=== PATIENT | female | born 1995 | race Caucasian/White ===

== ENCOUNTER 2016-09-01 20:50 | Emergency (ER) | payer SELFPAY ==
[~2016-09-01] VITALS: Ht 165.1 cm; Wt 70.5 kg
[~2016-09-01 20:50] MED LIST: ABILIFY2 MG; DEPO-PROVER150 MG/M1 IM; ESCITALOPRAM; FLEXERIL 1010 MG/TAB PO; LORTAB 5/500 501 TAB PO; NO HOME MEDICATIONS; NORCO 325 MG-51 TAB PO; NORCO 325 MG-7.1 TAB PO; PEN-VEE K500 MG PO; PERCOCET 325 MG1 TA2 PO; PHENERGAN 25 TA25 MG PO; SKELAXIN 4400 MG/TAB PO; ULTRAM 50MG TAB50 MG PO; ZOFRAN ODT4 MG PO
[2016-09-01 21:48] LABS: BASO # 0.1 (0.0-0.2); BASO % 0.7 % (0.0-2.0); EOS # 0.2 (0.0-0.7); EOS % 2.9 % (0-4.0); GRAN # 4.9 (1.4-6.5); GRAN % 64.9 % (42.2-75.2); HEMATOCRIT 43.2 % (37.0-47.0); HEMOGLOBIN 14.7 g/dl (12.5-16.0); LYMPH % 25.9 % (20.0-51.0); MEAN CELL VOLUME 88 fl (80.0-100.0); MEAN CORPUSCULAR HEMOGLOBIN 30 pg (27.0-31.0); MEAN CORPUSCULAR HGB CONC 34 g/dl (33.0-37.0); MEAN PLATELET VOLUME 8.9 fl (7.4-10.4); MONO # 0.4 (0.1-0.6); MONO % 5.3 % (1.7-9.3); PLATELET COUNT 320 K/mm3 (130-400); REDCELL DISTRIBUTION WIDTH-CV 12.4 % (11.5-14.5); WHITE BLOOD COUNT 7.6 K/mm3 (4.8-10.8)
[2016-09-01 21:58] LABS: PH 9 (5-8); URINE APPEARANCE Cloudy; URINE BACTERIA None Seen /hpf; URINE BILIRUBIN Negative (NEGATIVE); URINE BLOOD Negative (NEGATIVE); URINE COLOR Yellow; URINE GLUCOSE Negative (NEGATIVE); URINE KETONE Negative (NEGATIVE); URINE UROBILINOGEN Negative (NEGATIVE); URINE WBC None Seen /hpf
[2016-09-01 22:29] LABS: ADJUSTED CALCIUM 8.9 mg/dL (8.4-10.2); ALBUMIN 3.6 gm/dL (3.5-5.0); BILIRUBIN,TOTAL 0.6 mg/dL (0.0-1.0); C-REACTIVE PROTEIN 0.7 mg/dL (0.0-0.9); CALCIUM 8.6 mg/dL (8.4-10.2); CREATININE, serum 0.69 mg/dL (0.52-1.25); POTASSIUM 3.5 mmol/L (3.4-5.0); TOTAL PROTEIN 6.3 gm/dL (6.4-8.2)
[2016-09-01 22:55] VITALS: BP 131/91; PULSE 88; TEMP 97.8
[2016-09-02 00:11] LABS: CHLAMYDIA/TRACH by PCR Female NOT DETECTED; NEISSERIA GON by PCR Female NOT DETECTED
[2017-02-07] MEDS ORDERED: ATARAX50 MG PO (14:13)
[2017-02-07] MEDS ORDERED: WELLBUTRIN XL300 M1 PO (14:13)
[2017-02-07] MEDS ORDERED: DIAST10 RC (17:42)
[2017-02-07] MEDS ORDERED: VALIUM 5MG T5 MG/TAB PO (18:17)
== END 2016-09-01 22:52 | disposition home or self-care (01) ==
LOC: COL.ER 20:50
PROVIDERS: Nurse Practitioner
DX: R10.2 Pelvic and perineal pain (principal); N94.89 Other specified conditions associated with female genital organs and menstrual cycle; N89.8 Other specified noninflammatory disorders of vagina
CPT/HCPCS: J1885; J7030

== ENCOUNTER 2016-11-26 02:25 | Emergency (ER) | payer SELFPAY ==
[~2016-11-26] VITALS: Ht 167.6 cm; Wt 70.5 kg
[2016-11-26 02:27] VITALS: BP 138/70; TEMP 98.5
[2016-11-26] MEDS ORDERED: FLEXERIL 1010 MG/TAB PO (02:47)
[2016-11-26 02:59] VITALS: PULSE 99
[2016-11-26] MEDS ORDERED: VALIUM 5MG T5 MG/TAB PO (23:39)
[2016-11-26] MEDS ORDERED: NORCO 325 MG-51 TAB PO (23:39)
[2017-02-07] MEDS ORDERED: ATARAX50 MG PO (14:13)
[2017-02-07] MEDS ORDERED: WELLBUTRIN XL300 M1 PO (14:13)
[2017-02-07] MEDS ORDERED: DIAST10 RC (17:42)
[2017-02-07] MEDS ORDERED: VALIUM 5MG T5 MG/TAB PO (18:17)
== END 2016-11-26 03:01 | disposition home or self-care (01) ==
LOC: COL.ER 02:25
DX: S16.1XXA Strain of muscle, fascia and tendon at neck level, initial encounter (principal); X50.1XXA Overexertion from prolonged static or awkward postures, initial encounter
CPT/HCPCS: J1885

== ENCOUNTER 2016-11-26 23:11 | Emergency (ER) | payer SELFPAY ==
[~2016-11-26] VITALS: Ht 167.6 cm; Wt 70.5 kg
[2016-11-26 23:14] VITALS: BP 139/79; TEMP 98.1
[2016-11-26] MEDS ORDERED: NORCO 325 MG-51 TAB PO (23:39)
[2016-11-26] MEDS ORDERED: VALIUM 5MG T5 MG/TAB PO (23:39)
[2016-11-26 23:53] VITALS: PULSE 94
[2017-02-07] MEDS ORDERED: ATARAX50 MG PO (14:13)
[2017-02-07] MEDS ORDERED: WELLBUTRIN XL300 M1 PO (14:13)
[2017-02-07] MEDS ORDERED: DIAST10 RC (17:42)
[2017-02-07] MEDS ORDERED: VALIUM 5MG T5 MG/TAB PO (18:17)
== END 2016-11-26 23:55 | disposition home or self-care (01) ==
LOC: COL.ER 23:11
DX: S16.1XXA Strain of muscle, fascia and tendon at neck level, initial encounter (principal); X50.1XXA Overexertion from prolonged static or awkward postures, initial encounter; M62.838 Other muscle spasm

== ENCOUNTER 2017-01-25 20:45 | Emergency (ER) | payer SELFPAY ==
[~2017-01-25] VITALS: Ht 167.6 cm; Wt 68.2 kg
[~2017-01-25 20:45] MED LIST changes: +VALIUM 5MG T5 MG/TAB PO
[2017-01-25 20:52] VITALS: BP 137/92; TEMP 99
[2017-01-25 21:42] LABS: AMPHETAMINE URINE POSITIVE; BARBITURATES URINE NEGATIVE; BENZODIAZEPINES URINE NEGATIVE; BUPRENORPHINE URINE NEGATIVE; METHADONE URINE NEGATIVE; OPIATES URINE NEGATIVE; OXYCODONE URINE POSITIVE; PHENCYCLIDINE URINE NEGATIVE; PROPOXYPHENE URINE NEGATIVE; THC CANNABINOIDS URINE NEGATIVE
[2017-01-25 21:51] LABS: BASO # 0.1 (0.0-0.2); BASO % 0.6 % (0.0-2.0); EOS # 0.1 (0.0-0.7); EOS % 1.4 % (0-4.0); GRAN % 67.5 % (42.2-75.2); HEMATOCRIT 44.4 % (37.0-47.0); HEMOGLOBIN 14.6 g/dl (12.5-16.0); LYMPH # 2.5 (1.2-3.4); LYMPH % 24.4 % (20.0-51.0); MEAN CELL VOLUME 92 fl (80.0-100.0); MEAN CORPUSCULAR HEMOGLOBIN 30 pg (27.0-31.0); MEAN CORPUSCULAR HGB CONC 33 g/dl (33.0-37.0); MEAN PLATELET VOLUME 8.6 fl (7.4-10.4); MONO # 0.6 (0.1-0.6); MONO % 5.9 % (1.7-9.3); PLATELET COUNT 307 K/mm3 (130-400); RED BLOOD COUNT 4.83 M/mm3 (4.10-5.30); REDCELL DISTRIBUTION WIDTH-CV 12.8 % (11.5-14.5); WHITE BLOOD COUNT 10.3 K/mm3 (4.8-10.8)
[2017-01-25 22:01] LABS: ADJUSTED CALCIUM 9.1 mg/dL (8.4-10.2); ALANINE AMINOTRANSFERASE 21 U/L (9-52); ALBUMIN 4.6 gm/dL (3.5-5.0); ALKALINE PHOSPHATASE 54 U/L (50-136); ANION GAP 10 mmol/L (7-16); BILIRUBIN,TOTAL 1.3 mg/dL (0.0-1.0); BLOOD UREA NITROGEN 12 mg/dL (7-17); CALCIUM 9.6 mg/dL (8.4-10.2); CARBON DIOXIDE 26 mmol/L (22-30); CHLORIDE 100 mmol/L (98-107); GLUCOSE 85 mg/dL (74-106); POTASSIUM 3.9 mmol/L (3.4-5.0); SODIUM 137 mmol/L (137-145); TOTAL PROTEIN 7.9 gm/dL (6.4-8.2)
[2017-01-25 22:02] LABS: ACETAMINOPHEN < 10 ug/mL (10-30); SALICYLATE < 1.0 mg/dL
[2017-01-25 23:53] VITALS: PULSE 90
[2017-02-07] MEDS ORDERED: ATARAX50 MG PO (14:13)
[2017-02-07] MEDS ORDERED: WELLBUTRIN XL300 M1 PO (14:13)
[2017-02-07] MEDS ORDERED: DIAST10 RC (17:42)
[2017-02-07] MEDS ORDERED: VALIUM 5MG T5 MG/TAB PO (18:17)
== END 2017-01-25 23:54 | disposition home or self-care (01) ==
LOC: COL.ER 20:45
PROVIDERS: Physician Assistant
DX: R45.851 Suicidal ideations (principal); F41.9 Anxiety disorder, unspecified; F32.9 Major depressive disorder, single episode, unspecified; F17.210 Nicotine dependence, cigarettes, uncomplicated

== ENCOUNTER 2017-01-26 23:34 | Emergency (ER) | payer SELFPAY ==
[~2017-01-26] VITALS: Ht 167.6 cm; Wt 72.5 kg
[2017-01-26 23:38] VITALS: TEMP 96.7
[2017-01-27 00:27] LABS: BASO # 0.1 (0.0-0.2); BASO % 0.7 % (0.0-2.0); EOS # 0.2 (0.0-0.7); EOS % 2.7 % (0-4.0); GRAN # 4.1 (1.4-6.5); GRAN % 57.2 % (42.2-75.2); HEMATOCRIT 41.9 % (37.0-47.0); HEMOGLOBIN 13.7 g/dl (12.5-16.0); LYMPH # 2.3 (1.2-3.4); LYMPH % 32.4 % (20.0-51.0); MEAN CELL VOLUME 93 fl (80.0-100.0); MEAN CORPUSCULAR HEMOGLOBIN 31 pg (27.0-31.0); MEAN CORPUSCULAR HGB CONC 33 g/dl (33.0-37.0); MONO # 0.5 (0.1-0.6); MONO % 6.9 % (1.7-9.3); PLATELET COUNT 294 K/mm3 (130-400); RED BLOOD COUNT 4.49 M/mm3 (4.10-5.30); REDCELL DISTRIBUTION WIDTH-CV 12.6 % (11.5-14.5); WHITE BLOOD COUNT 7.1 K/mm3 (4.8-10.8)
[2017-01-27 00:36] LABS: ADJUSTED CALCIUM 8.7 mg/dL (8.4-10.2); ALANINE AMINOTRANSFERASE 18 U/L (9-52); ALBUMIN 4.2 gm/dL (3.5-5.0); ALKALINE PHOSPHATASE 45 U/L (50-136); ANION GAP 12 mmol/L (7-16); BILIRUBIN,TOTAL 0.4 mg/dL (0.0-1.0); BLOOD UREA NITROGEN 20 mg/dL (7-17); CALCIUM 8.9 mg/dL (8.4-10.2); CARBON DIOXIDE 26 mmol/L (22-30); CHLORIDE 103 mmol/L (98-107); CREATININE, serum 0.87 mg/dL (0.52-1.25); GLUCOSE 68 mg/dL (74-106); SODIUM 141 mmol/L (137-145); TOTAL PROTEIN 7.2 gm/dL (6.4-8.2)
[2017-01-27 00:37] LABS: ACETAMINOPHEN < 10 ug/mL (10-30); SALICYLATE < 1.0 mg/dL
[2017-01-27 00:38] LABS: AMPHETAMINE URINE POSITIVE; BARBITURATES URINE NEGATIVE; BENZODIAZEPINES URINE POSITIVE; BUPRENORPHINE URINE NEGATIVE; METHADONE URINE NEGATIVE; OPIATES URINE NEGATIVE; OXYCODONE URINE NEGATIVE; PHENCYCLIDINE URINE NEGATIVE; PROPOXYPHENE URINE NEGATIVE; THC CANNABINOIDS URINE NEGATIVE
[2017-01-27 11:21] VITALS: BP 108/59; PULSE 75
[2017-02-07] MEDS ORDERED: ATARAX50 MG PO (14:13)
[2017-02-07] MEDS ORDERED: WELLBUTRIN XL300 M1 PO (14:13)
[2017-02-07] MEDS ORDERED: DIAST10 RC (17:42)
[2017-02-07] MEDS ORDERED: VALIUM 5MG T5 MG/TAB PO (18:17)
== END 2017-01-27 13:32 ==
LOC: COL.ER 23:34
PROVIDERS: Emergency Medicine
DX: R45.851 Suicidal ideations (principal); F32.9 Major depressive disorder, single episode, unspecified; S40.812A Abrasion of left upper arm, initial encounter; F17.210 Nicotine dependence, cigarettes, uncomplicated; X83.8XXA Intentional self-harm by other specified means, initial encounter

== ENCOUNTER 2017-04-23 16:27 | Emergency (ER) | payer SELFPAY ==
[~2017-04-23] VITALS: Ht 167.6 cm; Wt 68.2 kg
[~2017-04-23 16:27] MED LIST changes: +ATARAX50 MG PO; +DIAST10 RC; +WELLBUTRIN XL300 M1 PO
[2017-04-23 16:29] VITALS: BP 150/80; TEMP 98
[2017-04-23] MEDS ORDERED: NORCO 325 MG-51 TAB PO (17:16)
[2017-04-23] MEDS ORDERED: FLEXERIL 1010 MG/TAB PO (17:16)
[2017-04-23 18:16] VITALS: PULSE 61
== END 2017-04-23 18:17 | disposition home or self-care (01) ==
LOC: COL.ER 16:27
DX: M54.5 Low back pain (principal); F32.9 Major depressive disorder, single episode, unspecified; F41.9 Anxiety disorder, unspecified; F12.90 Cannabis use, unspecified, uncomplicated; F17.210 Nicotine dependence, cigarettes, uncomplicated; Z87.890 Personal history of sex reassignment
CPT/HCPCS: J1885; J2360

== ENCOUNTER 2017-04-25 19:12 | Emergency (ER) | payer SELFPAY ==
[~2017-04-25] VITALS: Ht 167.6 cm; Wt 68.2 kg
[2017-04-25 19:13] VITALS: TEMP 98.6
[2017-04-25] MEDS ORDERED: LATUDA20 MG PO (20:14)
[2017-04-25] MEDS ORDERED: INDERAL 20MG20 MG PO (20:16)
[2017-04-25 20:21] LABS: BASO % 0.6 % (0.0-2.0); EOS # 0.3 (0.0-0.7); EOS % 6.1 % (0-4.0); GRAN % 55.1 % (42.2-75.2); HEMATOCRIT 37.3 % (37.0-47.0); HEMOGLOBIN 12.6 g/dl (12.5-16.0); LYMPH # 1.8 (1.2-3.4); LYMPH % 33.6 % (20.0-51.0); MEAN CELL VOLUME 91 fl (80.0-100.0); MEAN CORPUSCULAR HEMOGLOBIN 31 pg (27.0-31.0); MEAN CORPUSCULAR HGB CONC 34 g/dl (33.0-37.0); MONO # 0.2 (0.1-0.6); MONO % 4.4 % (1.7-9.3); PLATELET COUNT 285 K/mm3 (130-400); RED BLOOD COUNT 4.08 M/mm3 (4.10-5.30); WHITE BLOOD COUNT 5.5 K/mm3 (4.8-10.8)
[2017-04-25 20:31] LABS: ADJUSTED CALCIUM 9.4 mg/dL (8.4-10.2); ALANINE AMINOTRANSFERASE 23 U/L (9-52); ALCOHOL(ethanol),MEDICAL 69 mg/dL; ALKALINE PHOSPHATASE 48 U/L (50-136); ANION GAP 11 mmol/L (7-16); BILIRUBIN,TOTAL 0.2 mg/dL (0.0-1.0); BLOOD UREA NITROGEN 13 mg/dL (7-17); CALCIUM 9.4 mg/dL (8.4-10.2); CARBON DIOXIDE 25 mmol/L (22-30); CHLORIDE 105 mmol/L (98-107); CREATININE, serum 0.82 mg/dL (0.52-1.25); GLUCOSE 83 mg/dL (74-106); SODIUM 141 mmol/L (137-145); TOTAL PROTEIN 6.9 gm/dL (6.4-8.2)
[2017-04-25 20:32] LABS: ACETAMINOPHEN < 10 ug/mL (10-30); SALICYLATE < 1.0 mg/dL
[2017-04-25 22:00] LABS: COLLECTION METHOD CLEAN CATCH
[2017-04-25 22:18] LABS: PH 5 (5-8); SQUAMOUS EPITHELIAL 0-2 /hpf; URINE APPEARANCE Clear; URINE BACTERIA None Seen /hpf; URINE BILIRUBIN Negative (NEGATIVE); URINE BLOOD Negative (NEGATIVE); URINE COLOR Yellow; URINE GLUCOSE Negative (NEGATIVE); URINE KETONE Negative (NEGATIVE); URINE LEUKOCYTE ESTERASE Negative (NEGATIVE); URINE PROTEIN(semi-quant) Negative (NEGATIVE); URINE RBC 0-2 /hpf; URINE UROBILINOGEN Negative (NEGATIVE); URINE WBC 0-2 /hpf
[2017-04-25 22:22] LABS: AMPHETAMINE URINE POSITIVE; BARBITURATES URINE NEGATIVE; BENZODIAZEPINES URINE NEGATIVE; BUPRENORPHINE URINE NEGATIVE; METHADONE URINE NEGATIVE; OPIATES URINE POSITIVE; OXYCODONE URINE NEGATIVE; PHENCYCLIDINE URINE NEGATIVE; PROPOXYPHENE URINE NEGATIVE; THC CANNABINOIDS URINE NEGATIVE; TRICYCLIC ANTIDEPRESS URINE NEGATIVE
[2017-04-25 22:54] VITALS: BP 123/80; PULSE 72
== END 2017-04-25 22:54 | disposition home or self-care (01) ==
LOC: COL.ER 19:12
PROVIDERS: Emergency Medicine
DX: F32.9 Major depressive disorder, single episode, unspecified (principal); F41.9 Anxiety disorder, unspecified; R45.851 Suicidal ideations; F17.210 Nicotine dependence, cigarettes, uncomplicated; Z91.5 Personal history of self-harm

== ENCOUNTER 2018-01-21 01:48 | Emergency (ER) | payer SELFPAY ==
[~2018-01-21] VITALS: Ht 167.6 cm; Wt 72.7 kg
[~2018-01-21 01:48] MED LIST changes: +INDERAL 20MG20 MG PO; +LATUDA20 MG PO
[2018-01-21 02:12] LABS: COLLECTION METHOD CLEAN CATCH
[2018-01-21 02:18] LABS: PH 5 (5-8); SQUAMOUS EPITHELIAL 0-2 /hpf; URINE APPEARANCE Clear; URINE BACTERIA None Seen /hpf; URINE BILIRUBIN Negative (NEGATIVE); URINE BLOOD Negative (NEGATIVE); URINE COLOR Colorless; URINE GLUCOSE Negative (NEGATIVE); URINE KETONE Negative (NEGATIVE); URINE LEUKOCYTE ESTERASE Negative (NEGATIVE); URINE NITRATE Negative (NEGATIVE); URINE PROTEIN(semi-quant) Negative (NEGATIVE); URINE RBC None Seen /hpf; URINE UROBILINOGEN Negative (NEGATIVE)
[2018-01-21 02:24] LABS: BASO % 0.5 % (0.0-2.0); EOS # 0.3 (0.0-0.7); EOS % 3.7 % (0-4.0); GRAN % 49.7 % (42.2-75.2); HEMATOCRIT 40.1 % (37.0-47.0); HEMOGLOBIN 13.7 g/dl (12.5-16.0); LYMPH # 3.3 (1.2-3.4); LYMPH % 40.5 % (20.0-51.0); MEAN CELL VOLUME 89 fl (80.0-100.0); MEAN CORPUSCULAR HEMOGLOBIN 31 pg (27.0-31.0); MEAN CORPUSCULAR HGB CONC 34 g/dl (33.0-37.0); MEAN PLATELET VOLUME 8.6 fl (7.4-10.4); MONO # 0.4 (0.1-0.6); MONO % 5.5 % (1.7-9.3); PLATELET COUNT 390 K/mm3 (130-400); RED BLOOD COUNT 4.49 M/mm3 (4.10-5.30); REDCELL DISTRIBUTION WIDTH-CV 12.8 % (11.5-14.5)
[2018-01-21 02:26] LABS: TRICYCLIC ANTIDEPRESS URINE NEGATIVE
[2018-01-21 02:34] LABS: ALANINE AMINOTRANSFERASE 34 U/L (9-52); ALBUMIN 4.6 gm/dL (3.5-5.0); ALKALINE PHOSPHATASE 55 U/L (50-136); ANION GAP 15 mmol/L (7-16); AST,SGOT 30 U/L (15-37); BILIRUBIN,TOTAL 0.2 mg/dL (0.0-1.0); BLOOD UREA NITROGEN 14 mg/dL (7-17); CALCIUM 8.8 mg/dL (8.4-10.2); CARBON DIOXIDE 23 mmol/L (22-30); CHLORIDE 107 mmol/L (98-107); CREATININE, serum 0.74 mg/dL (0.52-1.25); GLUCOSE 99 mg/dL (74-106); POTASSIUM 4.1 mmol/L (3.4-5.0); SODIUM 145 mmol/L (137-145); TOTAL PROTEIN 8.5 gm/dL (6.4-8.2)
[2018-01-21 02:35] LABS: ACETAMINOPHEN < 10 ug/mL (10-30); SALICYLATE < 1.0 mg/dL
[2018-01-21 02:42] LABS: ALCOHOL(ethanol),MEDICAL 333 mg/dL
[2018-01-21 17:35] VITALS: BP 92/55; PULSE 76; TEMP 97.8
== END 2018-01-21 17:36 | disposition home or self-care (01) ==
LOC: COL.ER 01:48
PROVIDERS: Emergency Medicine
DX: R45.851 Suicidal ideations (principal); F32.9 Major depressive disorder, single episode, unspecified; F10.129 Alcohol abuse with intoxication, unspecified; Y90.8 Blood alcohol level of 240 mg/100 ml or more

== ENCOUNTER 2018-05-02 10:52 | Emergency (ER) | payer SELFPAY ==
[~2018-05-02] VITALS: Ht 167.6 cm; Wt 70.5 kg
[2018-05-02] MEDS ORDERED: PREDNISONE20 MG PO (12:37)
[2018-05-02] MEDS ORDERED: PEPCID 20MG TAB20 MG PO (12:37)
[2018-05-02 12:52] VITALS: BP 126/76; PULSE 78; TEMP 97.4
== END 2018-05-02 12:52 | disposition home or self-care (01) ==
LOC: COL.ER 10:52
DX: T78.1XXA Other adverse food reactions, not elsewhere classified, initial encounter (principal)
CPT/HCPCS: J2930; J7030

== ENCOUNTER 2021-04-08 03:22 | Emergency (ER) | payer SELFPAY ==
[~2021-04-08] VITALS: Ht 170.2 cm; Wt 68.2 kg
[~2021-04-08 03:22] MED LIST changes: +PEPCID 20MG TAB20 MG PO; +PREDNISONE20 MG PO
[2021-04-08 03:41] VITALS: TEMP 97.2
[2021-04-08 04:15] LABS: BASO % 0.3 % (0.0-2.0); EOS # 0.3 K/mm3 (0.0-0.7); EOS % 1.9 % (0-4.0); GRAN # 11.1 K/mm3 (1.4-6.5); GRAN % 74.1 % (42.2-75.2); HEMATOCRIT 48.6 % (37.0-47.0); HEMOGLOBIN 16.6 g/dl (12.5-16.0); LYMPH # 2.9 K/mm3 (1.2-3.4); LYMPH % 19.3 % (20.0-51.0); MEAN CELL VOLUME 89 fl (80.0-100.0); MEAN CORPUSCULAR HEMOGLOBIN 30 pg (27.0-31.0); MEAN CORPUSCULAR HGB CONC 34 g/dl (33.0-37.0); MEAN PLATELET VOLUME 8.7 fl (7.4-10.4); MONO # 0.6 K/mm3 (0.1-0.6); PLATELET COUNT 372 K/mm3 (130-400); RED BLOOD COUNT 5.46 M/mm3 (4.10-5.30); REDCELL DISTRIBUTION WIDTH-CV 12.7 % (11.5-14.5)
[2021-04-08 04:36] LABS: ALBUMIN 3.6 gm/dL (3.5-5.0); BILIRUBIN,TOTAL 0.3 mg/dL (0.2-1.2); CALCIUM 9.5 mg/dL (8.4-10.2); CREATININE, serum 0.83 mg/dL (0.57-1.11); POTASSIUM 3.3 mmol/L (3.5-4.5); TOTAL PROTEIN 7.2 gm/dL (6.2-8.1)
[2021-04-08] MEDS ORDERED: PREDNISONE50 MG PO (05:50)
[2021-04-08 05:55] VITALS: BP 98/52; PULSE 102
== END 2021-04-08 06:07 | disposition home or self-care (01) ==
LOC: COL.ER 03:22
PROVIDERS: Student in an Organized Health Care Education/Training Program
DX: T78.2XXA Anaphylactic shock, unspecified, initial encounter (principal); F17.210 Nicotine dependence, cigarettes, uncomplicated
CPT/HCPCS: J2405; J2930